=== PATIENT | female | born 1965 | race African-American/Black ===

== ENCOUNTER 2017-06-18 18:04 | Inpatient (IN) | payer OTHER ==
[~2017-06-18] VITALS: Ht 170.2 cm; Wt 150.0 kg
--- NOTE | 2017-06-18 18:47 | RADRPT ---
PROCEDURE: XR, Chest. CLINICAL INDICATION: Cough/weakness. TECHNIQUE: AP chest COMPARISON: None available. FINDINGS: There is no acute infiltrate in the lungs. No pleural effusion. The heart is not enlarged. IMPRESSION: 1. Unremarkable chest x-ray. RPTAT: GG .Mendez James MD, Date Time Electronically viewed and signed by .Mendez James MD, on 06/18/2017 18:46 .Y/
[2017-06-18] MEDS ORDERED: ACETAMINOPHEN 500 MG TAB PO STA (19:26)
[2017-06-18 19:36] LABS: BASOPHILS % 0.3 % (0.0-2.0); EOSINOPHILS # 0.1 10^3/ul (0.0-0.5); EOSINOPHILS % 1.1 % (0.0-7.0); HEMATOCRIT 41.3 % (37.0-47.0); HEMOGLOBIN 14.3 g/dl (12.0-16.0); LYMPHOCYTES # 2.2 10^3/ul (0.8-2.9); LYMPHOCYTES % 24.8 % (15.0-51.0); MEAN CORPUSCULAR HEMOGLOBIN 27.1 pg (29.0-33.0); MEAN CORPUSCULAR HGB CONC 34.6 g/dl (32.0-37.0); MEAN CORPUSCULAR VOLUME 78.4 fl (82.0-101.0); MEAN PLATELET VOLUME 9.9 fl (7.4-10.4); MONOCYTE # 0.6 10^3/ul (0.3-0.9); MONOCYTES % 6.7 % (0.0-11.0); NEUTROPHILS % 66.8 % (39.0-77.0); PLATELET COUNT 278 10^3/UL (140-415); RED BLOOD COUNT 5.27 10^6/ul (4.20-5.40); RED CELL DISTRIBUTION WIDTH 14.1 % (11.5-14.5)
[2017-06-18 19:51] LABS: ANION GAP 14 (8-16); BLOOD UREA NITROGEN 15 mg/dl (7-20); CALCIUM 9.5 mg/dl (8.4-10.2); CARBON DIOXIDE 27 mmol/L (21-31); CHLORIDE 105 mmol/L (97-110); CREATININE 0.98 mg/dl (0.44-1.00); GLUCOSE 102 mg/dl (70-220); SODIUM 142 mmol/L (135-144)
[2017-06-18 20:00] LABS: INR 0.91; PROTIME 12.3 Sec (12.2-14.2)
[2017-06-18 20:06] LABS: TROPONIN-I < 0.012 ng/ml (0.00-0.12)
[2017-06-18 20:10] LABS: PARTIAL THROMBOPLASTIN TIME 22.1 Sec (25.0-35.0)
[2017-06-18] MEDS ORDERED: LORAZEPAM 2 MG INJ IV ONE (21:00)
--- NOTE | 2017-06-18 21:44 | RADRPT ---
PROCEDURE: CT Brain without contrast. CLINICAL INDICATION: Altered level of consciousness. TECHNIQUE: A CT of the brain without contrast was performed utilizing axial sections from the skul l base through the vertex. The patient was scanned without intravenous contrast enhancement. Sagitta l and coronal reformatted images were obtained using the data from the axial images. Total exam DLP is 900.28 mGy-cm. CTDIvol is 45.01 mGy. One or more of the following dose reduction techniques we re used: Automated exposure control, adjustment of the mA and/or kV according to patient size, use o f iterative reconstruction technique. DICOM images are available. COMPARISON: None available FINDINGS: There is normal diaz-white matter differentiation. The ventricles and cisterns are normal. There is no intracranial hemorrhage or space-occupying lesion. There is no skull fracture or lytic lesion. IMPRESSION: 1. Normal noncontrast CT scan of the brain. RPTAT: QQ .Jama Cm MD, MD Date Time Electronically viewed and signed by .Jama Cm MD, on 06/18/2017 21:44 .R/
[2017-06-18] MEDS ORDERED: ACETAMINOPHEN 325 MG TAB PO PRN (23:30)
[2017-06-18] MEDS ORDERED: ONDANSETRON 4 MG INJ IV PRN (23:30)
[2017-06-19] VITALS (12 sets, daily range): BP systolic 128–180; BP diastolic 59–88; PULSE 72–92; RESP 16–19; Ht 170.2 cm; Wt 150.0 kg
[2017-06-19] MEDS ORDERED: ONDANSETRON 4 MG INJ IV PRN
[2017-06-19] MEDS ORDERED: ACETAMINOPHEN 325 MG TAB PO PRN
[2017-06-19] MEDS ORDERED: ALBUTEROL/IPRATROPIUM (NEB) 3 ML AMP HHN PRN
[2017-06-19] MEDS ORDERED: NACL 0.9% 3 ML SYG IV SCH
--- NOTE | 2017-06-19 06:23 | HP ---
Date/Time of Note Date/Time of Note DATE: 06/19/17 TIME: 06:17 Assessment/Plan VTE Prophylaxis VTE Prophylaxis Intervention: LMWH Lines/Catheters IV [facility] Saline Lock Urinary Cath still in place: No Assessment/Plan Assessment/Plan ASSESSMENT 49-year-old female with a history of fibromyalgia, PTSD, anxiety, GERD, prediabetes with acute onset aphasia. Rule out stroke. PLAN -Telemetry monitoring -Head CT was negative for acute findings. Will order carotid Doppler ultrasound and MRI of the brain as well as 2D echo -She will be on aspirin, statin and either subcutaneous heparin or Lovenox for DVT prophylaxis -Physical therapy and speech/swallow evaluation -Neurology consult in a.m. -Check A1c and fasting lipid in a.m. HPI/ROS Admit Date/Time Admit Date/Time Jun 18, 2017 at 23:20 Hx of Present Illness This is a 49-year-old female with a history of fibromyalgia, PTSD, anxiety, GERD , prediabetes who presents to the ER complaining of acute onset of difficulty speaking. All of a sudden, patient was unable to speak. When she presented to the ER, reportedly, she was able to speak but not in full sentence. Currently, she is completely aphasic and only mumbles when attempting to speak. She can't even open her mouth. There is bilateral upper and lower ext weakness. When asked if she was dx'd with stroke before, she nodded yes. When she presented to the ER, BP was 165/78 otherwise the rest of the vitals were stable. Head CT was no acute findings. PMH/Family/Social Social History Smoking Status: Never smoker Exam/Review of Systems Vital Signs Vitals Vital Signs Date Time Temp Pulse Resp B/P Pulse Ox O2 Delivery O2 Flow Rate FiO2 06/19/17 05:18 77 06/19/17 04:28 98.3 16 158/74 94 06/18/17 23:38 Room Air Intake and Output 06/18/17 06/18/17 06/19/17 15:00 23:00 07:00 Intake Total 200 ml Balance 200 ml Exam Constitutional: other (No acute distress. Showing difficulty speaking) Head: atraumatic, normocephalic Eyes: EOMI, PERRL Respiratory: clear to auscultation, normal air movement Cardiovascular: nl pulses, regular rate and rhythm Gastrointestinal: non-tender, soft Neurological: nl mental status, nl strength, other (Speech impairment) Labs Result Diagram: 06/18/17192406/18/171924 Medications Medications Current Medications Lorazepam (Ativan) 0.5 mg Q8H PRN PO ANXIETY; Start 06/19/17 at 00:00 Ondansetron HCl (Zofran Inj) 4 mg Q6H PRN IV NAUSEA AND/OR VOMITING; Start at 00:00 Aspirin (Aspirin) 81 mg DAILY PO ; Start 06/19/17 at 09:00 Acetaminophen (Tylenol Tab) 650 mg Q6H PRN PO PAIN LEVEL 1-3 OR FEVER; Start 06/19/17 at 00:00 Morphine Sulfate (morphine) 2 mg Q4H PRN IV PAIN LEVEL 7-10; Start 06/19/17 at 00:00 Famotidine (Pepcid) 20 mg Q12 PO ; Start 06/19/17 at 09:00 Enoxaparin Sodium (Lovenox) 40 mg DAILY SC ; Start 06/19/17 at 09:00 Atorvastatin Calcium (Lipitor) 40 mg QHS PO ; Start 06/19/17 at 21:00 PAULINE CASTILLO MD Jun 19, 2017 06:22
[2017-06-19] MEDS: ASPIRIN 81 MG TAB PO SCH (08:16)
[2017-06-19] MEDS: FAMOTIDINE 20 MG TAB PO SCH ×2 (08:16→20:20)
[2017-06-19] MEDS: ENOXAPARIN 40 MG/0.4 ML SYG SC SCH (08:17)
[2017-06-19 08:48] LABS: BASOPHILS % 0.3 % (0.0-2.0); EOSINOPHILS # 0.1 10^3/ul (0.0-0.5); EOSINOPHILS % 1.5 % (0.0-7.0); HEMATOCRIT 37.2 % (37.0-47.0); HEMOGLOBIN 12.9 g/dl (12.0-16.0); LYMPHOCYTES # 1.9 10^3/ul (0.8-2.9); LYMPHOCYTES % 26.4 % (15.0-51.0); MEAN CORPUSCULAR HGB CONC 34.7 g/dl (32.0-37.0); MEAN CORPUSCULAR VOLUME 77.8 fl (82.0-101.0); MEAN PLATELET VOLUME 10.1 fl (7.4-10.4); MONOCYTE # 0.4 10^3/ul (0.3-0.9); MONOCYTES % 5.6 % (0.0-11.0); NEUTROPHIL # 4.7 10^3/ul (1.6-7.5); NEUTROPHILS % 65.9 % (39.0-77.0); PLATELET COUNT 237 10^3/UL (140-415); RED BLOOD COUNT 4.78 10^6/ul (4.20-5.40); RED CELL DISTRIBUTION WIDTH 14.1 % (11.5-14.5); WHITE BLOOD COUNT 7.2 10^3/ul (4.8-10.8)
[2017-06-19 09:14] LABS: ALBUMIN 3.7 g/dl (3.3-4.9); ALBUMIN/GLOBULIN RATIO 1.27; BILIRUBIN,INDIRECT 0.5 mg/dl (0-1.1); BILIRUBIN,TOTAL 0.5 mg/dl (0.2-1.3); CALCIUM 8.9 mg/dl (8.4-10.2); CHOL/HDL RATIO 2.4 RATIO; CREATININE 0.91 mg/dl (0.44-1.00); MAGNESIUM 1.9 mg/dl (1.7-2.5); POTASSIUM 4.3 mmol/L (3.5-5.1); TOTAL PROTEIN 6.6 g/dl (6.1-8.1)
--- NOTE | 2017-06-19 09:44 | RADRPT ---
PROCEDURE: Carotid ultrasound CLINICAL INDICATION: Transient ischemic attack, carotid bruits TECHNIQUE: Rogers scale, color doppler, spectral doppler ultrasound of the bilateral carotid and nataliia tebral arteries. This study indirectly references the measurement of the distal ICA diameter as the denominator for s tenosis measurement. Validated velocity measurements with angiographic measurements, velocity criter ia are extrapolated from diameter data as defined by: *Cartoid artery stenosis: rogers-scale and Doppl er US diagnosis. Society of Radiologists in Ultrasound Consensus Conference. Radiology 2003; 229: 34 0-346. SRU Consensus Conference Criteria for the Diagnosis of Carotid Artery Stenosis* Degree of Stenosis, % ICA PSV, cm/sec Plaque Estimate, % ICA/CCA PSV Ratio Normal <125 None <2.0 <50 <125 <50 <2.0 50 69 125-230 >50 2.0-4.0 >70 but less than near occlusion >230 >50 <4.0 Near occlusion High, low, or undetectable Visible Variable Total occlusion Undetectable Visible, no detectable lumen Not applicable COMPARISON: No prior studies are available for comparison. FINDINGS: Location Right CCA80 - 90 cm/sec Prox ICA 37 cm/sec Mid ICA57 cm/sec Dist ICA63 cm/sec ECA80 cm/sec ICA/CCA0.8 Left CCA76 - 89 cm/sec Prox ICA 92 cm/sec Mid ICA64 cm/sec Dist ICA70 cm/sec PGQ428 cm/sec ICA/CCA1.2 Plaque burden: No significant plaque is seen. Antegrade flow is seen within the vertebral arteries bilaterally. IMPRESSION: No evidence of a hemodynamically significant carotid stenosis. RPTAT: AADD .Venkat Neff MD, MD Date Time Electronically viewed and signed by .Venkat Neff MD, MD on 06/19/2017 09:43 .B/
--- NOTE | 2017-06-19 09:50 | PN ---
Date/Time of Note Date/Time of Note DATE: 06/19/17 TIME: 09:50 Assessment/Plan VTE Prophylaxis VTE Prophylaxis Intervention: LMWH Lines/Catheters IV Catheter Type (from [facility]): Saline Lock Urinary Cath still in place: No Assessment/Plan Chief Complaint/Hosp Course 49-year-old female with a history of fibromyalgia, PTSD, anxiety, GERD, prediabetes presented with sudden onset of difficulty speaking. 1. Aphasia. Rule out CVA versus possible migraine attack vs psychogenic etiologies. CT negative for acute stroke. Neuro exam benign. Symptoms resolved. -We will order MRI brain, MRA head and neck. -Neurology consult-defer migraine treatment per neurology. 2. PTSD. -Continue supportive care. Recommend outpatient psychiatric evaluation. 3. Anxiety disorders. -As needed benzodiazepine. 4. Prediabetes-controlled with A1c 5.7. On Januvia at home -On Tradjenta. Monitor. 5. Obesity. -Weight reduction advised. 6. GERD. Stable. 7. Hx of concussion/migraines Prophylaxis: Lovenox/Pepcid. PLAN: Follow-up on imaging studies. Follow-up with neurology recommendations. Patient was seen in collaboration with Dr. Rg. Problems: Subjective 24 Hr Interval Summary Free Text/Dictation Patient currently resting in bed comfortably. She is not aphasic at this moment. She is conversing appropriately. Having headache. Exam/Review of Systems Vital Signs Vitals Vital Signs Date Time Temp Pulse Resp B/P Pulse Ox O2 Delivery O2 Flow Rate FiO2 06/19/17 08:31 77 06/19/17 04:28 98.3 16 158/74 94 06/18/17 23:38 Room Air Intake and Output 06/18/17 06/18/17 06/19/17 15:00 23:00 07:00 Intake Total 200 ml Balance 200 ml Exam General: Morbidly obese female, not in any acute distress . HEENT: Normocephalic, Atraumatic, No laceration or hematoma; Eyes: PEERL, Conjunctiva clear, Anicteric sclera Neck: Supple without any lymphadenopathy, nontender, no JVD, no carotid bruits, trachea midline, no thyromegaly Cardiac: S1, S2 auscultated, regular rhythm and rate, no mumurs or gallop Pulmonary: Normal respiratory effort. Chest clear to auscultation bilaterally, no adventitious breath sounds GI: Abdomen normal to inspection. Soft, non tender, non- distended, no masses, no rebound tenderness or guarding. Bowel sounds active on all four quadrants Genitourinary: Deferred Extremities: Generalized weakness to all 4 extremities. No cyanosis, clubbing, or edema. Pulses [2+] bilaterally. Full ROM on all four extremities. No focal weakness appreciated. Neurologic/Psych: Alert to person, place, time, and situation. Affect : Labile mood/anxious, intact sensation. Skin: Clean,dry, and intact. No ecchymosis, no rashes, or lesions Results Result Diagram: 06/19/17 0706/19/17 0730 Results 24 hrs Laboratory Tests Test 06/18/17 19:25 06/19/17 07:30 White Blood Count 9.0 7.2 Red Blood Count 5.27 4.78 Hemoglobin 14.3 12.9 Hematocrit 41.3 37.2 Mean Corpuscular Volume 78.4 L 77.8 L Mean Corpuscular Hemoglobin 27.1 L 27.0 L Mean Corpuscular Hemoglobin Concent 34.6 34.7 Red Cell Distribution Width 14.1 14.1 Platelet Count 278 237 Mean Platelet Volume 9.9 10.1 Neutrophils % 66.8 65.9 Lymphocytes % 24.8 26.4 Monocytes % 6.7 5.6 Eosinophils % 1.1 1.5 Basophils % 0.3 0.3 Nucleated Red Blood Cells % 0.0 0.0 Neutrophils # 6.0 4.7 Lymphocytes # 2.2 1.9 Monocytes # 0.6 0.4 Eosinophils # 0.1 0.1 Basophils # 0.0 0.0 Nucleated Red Blood Cells # 0.0 0.0 Prothrombin Time 12.3 Prothrombin Time Ratio 1.0 INR International Normalized Ratio 0.91 Activated Partial Thromboplast Time 22.1 L Sodium Level 142 140 Potassium Level 4.0 4.3 Chloride Level 105 105 Carbon Dioxide Level 27 26 Anion Gap 14 13 Blood Urea Nitrogen 15 12 Creatinine 0.98 0.91 Glucose Level 102 120 Calcium Level 9.5 8.9 Troponin I < 0.012 Magnesium Level 1.9 Total Bilirubin 0.5 Direct Bilirubin 0.00 Indirect Bilirubin 0.5 Aspartate Amino Transf (AST/SGOT) 24 Alanine Aminotransferase (ALT/SGPT) 44 Alkaline Phosphatase 63 Total Protein 6.6 Albumin 3.7 Globulin 2.90 Albumin/Globulin Ratio 1.27 Triglycerides Level 99 Cholesterol Level 216 H LDL Cholesterol, Calculated 109 HDL Cholesterol 87 Cholesterol/HDL Ratio 2.4 Thyroid Stimulating Hormone (TSH) Pending Medications Medications Current Medications Lorazepam (Ativan) 0.5 mg Q8H PRN PO ANXIETY; Start 06/19/17 at 00:00 Ondansetron HCl (Zofran Inj) 4 mg Q6H PRN IV NAUSEA AND/OR VOMITING; Start at 00:00 Aspirin (Aspirin) 81 mg DAILY PO Last administered on 06/19/17 08:16; Admin Dose 81 MG; Start 06/19/17 at 09:00 Acetaminophen (Tylenol Tab) 650 mg Q6H PRN PO PAIN LEVEL 1-3 OR FEVER; Start 06/19/17 at 00:00 Morphine Sulfate (morphine) 2 mg Q4H PRN IV PAIN LEVEL 7-10; Start 06/19/17 at 00:00 Famotidine (Pepcid) 20 mg Q12 PO Last administered on 06/19/17 08:16; Admin Dose 20 MG; Start 06/19/17 at 09:00 Enoxaparin Sodium (Lovenox) 40 mg DAILY SC Last administered on 06/19/17 08: 17; Admin Dose 40 MG; Start 06/19/17 at 09:00 Atorvastatin Calcium (Lipitor) 40 mg QHS PO ; Start 06/19/17 at 21:00 CELESTE AYERS NP Jun 19, 2017 09:50
[2017-06-19 10:09] LABS: THYROID STIMULATING HORMONE 1.11 MIU/L (0.465-4.680)
--- NOTE | 2017-06-19 12:36 | CONS ---
Date/Time of Note Date/Time of Note DATE: 06/19/17 TIME: 12:31 Assessment/Plan Assessment/Plan Chief Complaint/Hosp Course 52 yo female with morbid obesity, pre-diabetes, depression anxiety, migraine p/ w aphasia diffuse weakness. rule out CVA. suspect more psychogenic etiology. continue plan for MRI Brain and MRA Head/Neck utox screen conservative headache management she is on multiple medications at home reluctant to add an additional med advised patient she should fu with a neurologist for management of migraines if no emergent findings on MRI would suggest psychiatry evaluation Problems: Consultation Date/Type/Reason Admit Date/Time Jun 18, 2017 at 23:20 Date of Consultation: Jun 18, 2017 Type of Consultation: Neurology Reason for Consultation aphasia Referring Provider: CELESTE AYERS NP Hx of Present Illness 49 yo female morbid obesity, fibromyalgia, PTSD, depression and anxiety, pre- diabetes, hx of concussion with chronic migraines p/w difficulty speaking. She also describes numbness that began in both feet that ascends throughout her entire body she is unable to move her arms or legs she denies any bowel or bladder issues. She is admitted for CVA whitaker. weakness diffuse headache Social History Smoking Status: Never smoker Exam/Review of Systems Vital Signs Vitals Vital Signs Date Time Temp Pulse Resp B/P Pulse Ox O2 Delivery O2 Flow Rate FiO2 06/19/17 12:12 76 06/19/17 11:33 98.2 17 128/59 95 06/18/17 23:38 Room Air Intake and Output 06/18/17 06/18/17 06/19/17 15:00 23:00 07:00 Intake Total 200 ml Balance 200 ml Exam awake and alert oriented verbal follows all commands CN: II-XII intact Motor: guarding her extremities, + Bryant's maneuver she is unable to provide appropriate strength on testing, however doubt there is actual weakness Sensory reportedly decreased Reflexes 1+ throughout toes down Results Result Diagram: 06/19/17 0730 06/19/17 0730 Results 24 hrs Laboratory Tests Test 06/18/17 19:25 06/19/17 07:30 White Blood Count 9.0 7.2 Red Blood Count 5.27 4.78 Hemoglobin 14.3 12.9 Hematocrit 41.3 37.2 Mean Corpuscular Volume 78.4 L 77.8 L Mean Corpuscular Hemoglobin 27.1 L 27.0 L Mean Corpuscular Hemoglobin Concent 34.6 34.7 Red Cell Distribution Width 14.1 14.1 Platelet Count 278 237 Mean Platelet Volume 9.9 10.1 Neutrophils % 66.8 65.9 Lymphocytes % 24.8 26.4 Monocytes % 6.7 5.6 Eosinophils % 1.1 1.5 Basophils % 0.3 0.3 Nucleated Red Blood Cells % 0.0 0.0 Neutrophils # 6.0 4.7 Lymphocytes # 2.2 1.9 Monocytes # 0.6 0.4 Eosinophils # 0.1 0.1 Basophils # 0.0 0.0 Nucleated Red Blood Cells # 0.0 0.0 Prothrombin Time 12.3 Prothrombin Time Ratio 1.0 INR International Normalized Ratio 0.91 Activated Partial Thromboplast Time 22.1 L Sodium Level 142 140 Potassium Level 4.0 4.3 Chloride Level 105 105 Carbon Dioxide Level 27 26 Anion Gap 14 13 Blood Urea Nitrogen 15 12 Creatinine 0.98 0.91 Glucose Level 102 120 Calcium Level 9.5 8.9 Troponin I < 0.012 Hemoglobin A1c 5.7 Magnesium Level 1.9 Total Bilirubin 0.5 Direct Bilirubin 0.00 Indirect Bilirubin 0.5 Aspartate Amino Transf (AST/SGOT) 24 Alanine Aminotransferase (ALT/SGPT) 44 Alkaline Phosphatase 63 Total Protein 6.6 Albumin 3.7 Globulin 2.90 Albumin/Globulin Ratio 1.27 Triglycerides Level 99 Cholesterol Level 216 H LDL Cholesterol, Calculated 109 HDL Cholesterol 87 Cholesterol/HDL Ratio 2.4 Thyroid Stimulating Hormone (TSH) 1.110 Medications Medications Current Medications Lorazepam (Ativan) 0.5 mg Q8H PRN PO ANXIETY; Start 06/19/17 at 00:00 Ondansetron HCl (Zofran Inj) 4 mg Q6H PRN IV NAUSEA AND/OR VOMITING; Start at 00:00 Aspirin (Aspirin) 81 mg DAILY PO Last administered on 06/19/17 08:16; Admin Dose 81 MG; Start 06/19/17 at 09:00 Acetaminophen (Tylenol Tab) 650 mg Q6H PRN PO PAIN LEVEL 1-3 OR FEVER Last administered on 06/19/17 12:04; Admin Dose 650 MG; Start 06/19/17 at 00:00 Morphine Sulfate (morphine) 2 mg Q4H PRN IV PAIN LEVEL 7-10; Start 06/19/17 at 00:00 Famotidine (Pepcid) 20 mg Q12 PO Last administered on 06/19/17 08:16; Admin Dose 20 MG; Start 06/19/17 at 09:00 Enoxaparin Sodium (Lovenox) 40 mg DAILY SC Last administered on 06/19/17 08: 17; Admin Dose 40 MG; Start 06/19/17 at 09:00 Atorvastatin Calcium (Lipitor) 40 mg QHS PO ; Start 06/19/17 at 21:00 CIRA OLIVEIRA MD Jun 19, 2017 12:36
[2017-06-19] MEDS: LORAZEPAM 0.5 MG TAB PO PRN (17:00)
--- NOTE | 2017-06-19 17:12 | RADRPT ---
Echocardiogram Report Patient Name: AYSE BAILEY Gender: Female Date: 1965 Study Date: 19-Jun-2017 Mud Analysis Supervisor: Arlen Marte [facility] Location: [address] Ref. Physician: PAULINE CASTILLO Quality: Good Procedures: Transthoracic echocardiogram with complete 2D, M-Mode, and doppler examination. Indications: Transient Ischemic Attack. 2D/M Mode Doppler Measurement Value Normal Ranges Measurement Value Normal Ranges LVIDd 2D 4.5 3.5 - 5.6 cm AV Peak Aiden 1.4 m/sec LVIDs 2D 2.8 2.1 - 4.1 cm AV Peak PG 8.0 mmHg FS 2D 37.0 % LVOT Peak Aiden 0.9 m/sec LVPWd 2D 0.9 0.6 - 1.1 cm LVOT Peak PG 4.0 mmHg IVSd 2D 1.1 0.6 - 1.1 cm MV E Peak Aiden 0.6 m/sec IVS/LVPW 2D 1.1 MV A Peak Aiden 0.7 m/sec AoR Diam 2D 2.4 2.0 - 3.7 cm MV E/A 0.9 LA/Ao 2D 2 0 - 1 MV Decel Time 204 msec EDV 2D 90.5 cm3 MV E/A 0.9 ESV 2D 22.7 cm3 TR Peak Aiden 2.3 m/sec LA Dimen 2D 4.2 2.3 - 4.0 cm TR Peak PG 21.0 mmHg RVSP 31.0 mmHg Findings Left Ventricle: Normal left ventricular systolic function. Normal left ventricular cavity size. Mild concentric left ventricular hypertrophy. Ejection fraction is visually estimated at 65 %. Tissue Doppler/Mitral Doppler indices are consistent with impaired relaxation (Stage I diastolic dysfunction). Right Ventricle: Normal right ventricular size. Normal right ventricular systolic function. Left Atrium: There is mild enlargement of left atrium. Right Atrium: The right atrium is normal in size. Mitral Valve: Normal appearance of the mitral valve. Mild mitral annular calcification. Trace mitral regurgitation. Aortic Valve: Normal appearance of the aortic valve. No significant aortic stenosis or insufficiency. Tricuspid Valve: Normal appearance of the tricuspid valve. Estimated peak PA systolic pressure 31 mmHg. There is trace to mild tricuspid regurgitation. Pulmonic Valve: Normal pulmonic valve appearance. Pericardium: Normal pericardium with no significant pericardial effusion. Aorta: Normal aortic root. IVC: Normal size and normal respiratory collapse consistent with normal right atrial pressure. Conclusions 1.Normal left ventricular systolic function. Normal left ventricular cavity size. Mild concentric left ventricular hypertrophy. Ejection fraction is visually estimated at 65 %. Tissue Doppler/Mitral Doppler indices are consistent with impaired relaxation (Stage I diastolic dysfunction). 2.There is mild enlargement of left atrium. 3.Normal appearance of the mitral valve. Mild mitral annular calcification. Trace mitral regurgitation. 4.Normal appearance of the aortic valve. No significant aortic stenosis or insufficiency. 5.Normal appearance of the tricuspid valve. Estimated peak PA systolic pressure 31 mmHg. There is trace to mild tricuspid regurgitation. Electronically Signed By: Ismael Vides 19-Jun-2017 17:11:10 -0800 Patient Name: AYSE BAILEY Study Date: 19-Jun-2017 [id number]
[2017-06-19] MEDS ORDERED: LORAZEPAM 2 MG INJ IV ONE (17:50)
--- NOTE | 2017-06-19 18:59 | RADRPT ---
PROCEDURE: MRI Brain without contrast. CLINICAL INDICATION: Aphasia, TIA. TECHNIQUE: An MRI of the brain was performed utilizing the following sequences: Sagittal and axial T1 weighted, axial T2 weighted, axial diffusion weighted with ADC mapping, coronal GRE, and axial F LAIR. COMPARISON: Brain CT 06/18/2017. FINDINGS: No diffusion weighted abnormalities are seen to suggest the presence of acute ischemia or recent inf arct. No hypointense signal abnormalities are seen on the GRE images to suggest the presence of blo od degradation products. There is no evidence of intracranial hemorrhage, mass effect, or midline s hift. No extra-axial fluid collections are seen. The ventricles and sulci are mildly enlarged indica tive of volume loss. There are mild small scattered foci of T2 FLAIR hyperintensity in the periventricular, deep, and sub cortical white matter, which are nonspecific in etiology but likely reflect chronic small vessel isc hemic changes. No abnormal intracranial vascular flow void is noted. The visualized paranasal sinuses are grossly clear. IMPRESSION: 1. No acute intracranial hemorrhage, infarction or mass. 2. Mild chronic small vessel ischemic changes. 3. Mild generalized cerebral volume loss. RPTAT: HFN .Gi Holland MD, MD Date Time Electronically viewed and signed by .Gi Holland MD, MD on 06/19/2017 18:58 .N/
--- NOTE | 2017-06-19 19:01 | RADRPT ---
PROCEDURE: MRA Brain. CLINICAL INDICATION: Aphasia, TIA. Neurological deficit. TECHNIQUE: An MRA of the brain was performed without intravenous contrast utilizing the following sequences: 3-D [id number] images through the intracranial vasculature with post processed chaparro l intensity projections in multiple planes. Images are included in the brain MRI of the same day. COMPARISON: Concurrent MRI of the brain. FINDINGS: The petrous, cavernous, and supraclinoid internal carotid artery segments are patent without evidenc e of significant stenosis. The proximal anterior cerebral and middle cerebral arteries are patent wi thout significant stenosis. The intradural vertebral arteries, basilar artery and posterior cerebra l arteries are patent without evidence of significant focal stenosis. No aneurysms are identified. IMPRESSION: 1. Patent major intracranial arteries. RPTAT: HFN .Gi Holland MD, Date Time Electronically viewed and signed by .Gi Holland MD, on 06/19/2017 19:01 .N/
[2017-06-19] MEDS: ATORVASTATIN 40 MG TAB PO SCH (20:20)
[2017-06-20] VITALS (16 sets, daily range): BP systolic 119–187; BP diastolic 59–100; PULSE 69–95; RESP 16–20
[2017-06-20] MEDS: morphine 2 MG INJ IV PRN ×2 (04:37→08:56)
[2017-06-20] MEDS ORDERED: NAPR500T8 PO (06:30)
[2017-06-20] MEDS ORDERED: LOSA50TA6 PO (06:30)
[2017-06-20] MEDS ORDERED: SITA100T8 PO (06:30)
[2017-06-20] MEDS ORDERED: GABA300C16 PO (06:30)
[2017-06-20] MEDS ORDERED: METO-429 PO (06:30)
[2017-06-20] MEDS ORDERED: ATOR20TA38 PO (06:30)
[2017-06-20] MEDS ORDERED: NORT10CA2 PO (06:30)
[2017-06-20] MEDS: FAMOTIDINE 20 MG TAB PO SCH ×2 (08:50→20:31)
[2017-06-20] MEDS: ASPIRIN 81 MG TAB PO SCH (08:50)
[2017-06-20] MEDS: ENOXAPARIN 40 MG/0.4 ML SYG SC SCH (08:54)
--- NOTE | 2017-06-20 10:29 | PN ---
Date/Time of Note Date/Time of Note DATE: 06/20/17 TIME: 10:26 Assessment/Plan VTE Prophylaxis VTE Prophylaxis Intervention: ambulation, LMWH Lines/Catheters IV [facility]ter [facility] (from [facility] Saline Lock Urinary Cath still in place: No Assessment/Plan Chief Complaint/Hosp Course 49-year-old female with a history of fibromyalgia, PTSD, anxiety, GERD, prediabetes presented with sudden onset of difficulty speaking. 1. Aphasia,most likely possible conversion disorder vs malingering. Patient had extensive neurology diagnostic workup and could not explain a medical reason for her symptoms. Clinical presentation does not correlate with possible migraine aura attack. -Symptoms resolved. Currently patient is conversing appropriately. -Neurology evaluation appreciated. As per recommendation, there is no further treatment indicated for migraine as patient is currently taking multiple medications. -Outpatient psych follow-up 2. PTSD. -Continue supportive care. Recommend outpatient psychiatric evaluation which she already has. 3. Anxiety disorders. -As needed benzodiazepine. 4. Prediabetes-controlled with A1c 5.7. On Januvia at home -On Tradjenta. Monitor. 5. Obesity. -Weight reduction advised. 6. GERD. Stable. 7. Hx of concussion/migraines 8. Homelessness. -poultry process worker consult Prophylaxis: Lovenox/Pepcid. PLAN: Patient has been evaluated by physical therapist and recommended shelter facility for further physical therapy. Will defer this to case management and high school social studies tutor for appropriate placement. Patient was seen in collaboration with Dr. Rg. Problems: Subjective 24 Hr Interval Summary Free Text/Dictation Overall, patient doing well. Patient did not have any further aphasia. She has been evaluated by physical therapist and recommended a shelter facility upon discharge. Exam/Review of Systems Vital Signs Vitals Vital Signs Date Time Temp Pulse Resp B/P Pulse Ox O2 Delivery O2 Flow Rate FiO2 06/20/17 08:03 98.1 78 17 171/80 97 06/18/17 23:38 Room Air Intake and Output 06/19/17 06/19/17 06/20/17 14:59 22:59 06:59 Intake Total 650 ml 200 ml Balance 650 ml 200 ml Exam General: Morbidly obese female, not in any acute distress . HEENT: Normocephalic, Atraumatic, No laceration or hematoma; Eyes: PEERL, Conjunctiva clear, Anicteric sclera Neck: Supple without any lymphadenopathy, nontender, no JVD, no carotid bruits, trachea midline, no thyromegaly Cardiac: S1, S2 auscultated, regular rhythm and rate, no mumurs or gallop Pulmonary: Normal respiratory effort. Chest clear to auscultation bilaterally, no adventitious breath sounds GI: Abdomen obese to inspection. Soft, non tender, non- distended, no masses, no rebound tenderness or guarding. Bowel sounds active on all four quadrants Genitourinary: Deferred Extremities: With mild generalized weakness to all 4 extremities. No cyanosis, clubbing, or edema. Pulses [2+] bilaterally. Full ROM on all four extremities. No focal weakness appreciated. Neurologic/Psych: Alert to person, place, time, and situation. Affect : Labile mood/anxious, intact sensation. Skin: Clean,dry, and intact. No ecchymosis, no rashes, or lesions Results Result Diagram: 06/19/1730 06/19/17 0730 Medications Medications Current Medications Lorazepam (Ativan) 0.5 mg Q8H PRN PO ANXIETY Last administered on 06/19/17 17 :00; Admin Dose 0.5 MG; Start 06/19/17 at 00:00 Ondansetron HCl (Zofran Inj) 4 mg Q6H PRN IV NAUSEA AND/OR VOMITING; Start at 00:00 Aspirin (Aspirin) 81 mg DAILY PO Last administered on 06/20/17 08:50; Admin Dose 81 MG; Start 06/19/17 at 09:00 Acetaminophen (Tylenol Tab) 650 mg Q6H PRN PO PAIN LEVEL 1-3 OR FEVER Last administered on 06/19/17 12:04; Admin Dose 650 MG; Start 06/19/17 at 00:00 Morphine Sulfate (morphine) 2 mg Q4H PRN IV PAIN LEVEL 7-10 Last administered on 06/20/17 08:56; Admin Dose 2 MG; Start 06/19/17 at 00:00 Famotidine (Pepcid) 20 mg Q12 PO Last administered on 06/20/17 08:50; Admin Dose 20 MG; Start 06/19/17 at 09:00 Enoxaparin Sodium (Lovenox) 40 mg DAILY SC Last administered on 06/20/17 08: 54; Admin Dose 40 MG; Start 06/19/17 at 09:00 Atorvastatin Calcium (Lipitor) 40 mg QHS PO Last administered on 06/19/17t 20: 20; Admin Dose 40 MG; Start 06/19/17 at 21:00 Gabapentin (Neurontin) 300 mg BID PO ; Start 06/20/17 at 10:30 Losartan Potassium (Cozaar) 50 mg DAILY PO ; Start 06/20/17 at 10:30 Metoprolol Tartrate (Lopressor) 50 mg BID PO ; Start 06/20/17 at 10:30 Nortriptyline HCl (Aventyl) 10 mg HS PRN PO ANXIETY; Start 06/20/17 at 10:30 Miscellaneous Information 500 mg BID PO ; Start 06/20/17 at 21:00; Status UNV Linagliptin (Tradjenta) 5 mg DAILY PO ; Start 06/20/17 at 10:30 CELESTE AYERS NP Jun 20, 2017 10:29
[2017-06-20] MEDS ORDERED: NORTRIPTYLINE 10 MG CAP PO PRN (10:30)
[2017-06-20] MEDS ORDERED: GABAPENTIN 300 MG CAP PO SCH (10:30)
--- NOTE | 2017-06-20 11:50 | CONS ---
Date/Time of Note Date/Time of Note DATE: 06/20/17 TIME: 11:48 Consult Date/Type/Reason Admit Date/Time Jun 18, 2017 at 23:20 Initial Consult Date 06/18/17 Type of Consultation: Neurology Reason for Consultation weakness Ordering Provider: CELESTE AYERS NP Subjective recommended for SNF no improvement MRI negative Objective Vital Signs Date Time Temp Pulse Resp B/P Pulse Ox O2 Delivery O2 Flow Rate FiO2 06/20/17 08:03 98.1 78 17 171/80 97 06/18/17 23:38 Room Air Intake and Output 06/19/17 06/19/17 06/20/17 15:00 23:00 07:00 Intake Total 650 ml 200 ml Balance 650 ml 200 ml Exam awake and alert oriented verbal follows all commands CN: II-XII intact Motor: guarding her extremities, + Bryant's maneuver she is unable to provide appropriate strength on testing, however doubt there is actual weakness Sensory reportedly decreased Reflexes 1+ throughout toes down Results/Medications Result Diagram: 06/19/1772906/19/17729 Medications Current Medications Lorazepam (Ativan) 0.5 mg Q8H PRN PO ANXIETY Last administered on 06/19/17 17 :00; Admin Dose 0.5 MG; Start 06/19/17 at 00:00 Ondansetron HCl (Zofran Inj) 4 mg Q6H PRN IV NAUSEA AND/OR VOMITING; Start at 00:00 Aspirin (Aspirin) 81 mg DAILY PO Last administered on 06/20/17 08:50; Admin Dose 81 MG; Start 06/19/17 at 09:00 Acetaminophen (Tylenol Tab) 650 mg Q6H PRN PO PAIN LEVEL 1-3 OR FEVER Last administered on 06/19/17 12:04; Admin Dose 650 MG; Start 06/19/17 at 00:00 Famotidine (Pepcid) 20 mg Q12 PO Last administered on 06/20/17 08:50; Admin Dose 20 MG; Start 06/19/17 at 09:00 Enoxaparin Sodium (Lovenox) 40 mg DAILY SC Last administered on 06/20/17 08: 54; Admin Dose 40 MG; Start 06/19/17 at 09:00 Atorvastatin Calcium (Lipitor) 40 mg QHS PO Last administered on 06/19/17t 20: 20; Admin Dose 40 MG; Start 06/19/17 at 21:00 Losartan Potassium (Cozaar) 50 mg DAILY PO ; Start 06/20/17 at 10:30 Metoprolol Tartrate (Lopressor) 50 mg BID PO ; Start 06/20/17 at 10:30 Nortriptyline HCl (Aventyl) 10 mg HS PRN PO ANXIETY; Start 06/20/17 at 10:30 Linagliptin (Tradjenta) 5 mg DAILY PO ; Start 06/20/17 at 10:30 Acetaminophen/ Hydrocodone Bitart ([place] (5/325)) 1 tab Q4H PRN PO pain; Start 06/20/17 at 10:30 Assessment/Plan Chief Complaint/Hosp Course 52 yo female with morbid obesity, pre-diabetes, depression anxiety, migraine p/ w aphasia diffuse weakness. MRI MRA negative. Conversion d/o , chronic migraine, polypharmacy. conservative headache management she is on multiple medications at home reluctant to add an additional med psych evaluation will sign off requires outpatient neuro fu Problems: CIRA OLIVEIRA MD Jun 20, 2017 11:50
[2017-06-20] MEDS: HYDROCODONE/APAP (5/325) TAB PO PRN ×2 (12:33→20:32)
[2017-06-20] MEDS: LINAGLIPTIN 5 MG TABLET PO SCH (12:33)
[2017-06-20] MEDS: LOSARTAN 50 MG TAB PO SCH (12:34)
[2017-06-20] MEDS: METOPROLOL 50 MG TAB PO SCH ×2 (12:35→20:32)
[2017-06-20] MEDS: LORAZEPAM 0.5 MG TAB PO PRN (12:39)
[2017-06-20] MEDS: ATORVASTATIN 40 MG TAB PO SCH (20:31)
[2017-06-20] MEDS ORDERED: ATORVASTATIN 20 MG TAB PO SCH (21:00)
[2017-06-20] MEDS ORDERED: NAPROXEN 500 MG PO SCH (21:00)
[2017-06-21] VITALS (12 sets, daily range): BP systolic 127–163; BP diastolic 58–85; PULSE 65–71; RESP 16–19
[2017-06-21] MEDS: HYDROCODONE/APAP (5/325) TAB PO PRN (05:35)
[2017-06-21] MEDS ORDERED: KETOROLAC 30 MG INJ IV ONE (05:59)
[2017-06-21] MEDS: ASPIRIN 81 MG TAB PO SCH (08:54)
[2017-06-21] MEDS: FAMOTIDINE 20 MG TAB PO SCH ×2 (08:55→20:24)
[2017-06-21] MEDS: LINAGLIPTIN 5 MG TABLET PO SCH (08:55)
[2017-06-21] MEDS: LOSARTAN 50 MG TAB PO SCH (08:56)
[2017-06-21] MEDS: METOPROLOL 50 MG TAB PO SCH ×2 (08:56→20:24)
[2017-06-21] MEDS: ENOXAPARIN 40 MG/0.4 ML SYG SC SCH (09:20)
--- NOTE | 2017-06-21 10:18 | PN ---
Date/Time of Note Date/Time of Note DATE: 06/21/17 TIME: 10:18 Assessment/Plan VTE Prophylaxis VTE Prophylaxis Intervention: ambulation, SCD's Lines/Catheters IV Catheter Type (from [facility]): Saline Lock Urinary Cath still in place: No Assessment/Plan Chief Complaint/Hosp Course 49-year-old female with a history of fibromyalgia, PTSD, anxiety, GERD, prediabetes presented with sudden onset of difficulty speaking. 1. Aphasia,most likely possible conversion disorder vs malingering. Patient had extensive neurology diagnostic workup and could not explain a medical reason for her symptoms. -As the plan was to discharge patient since her symptoms were completely resolved, she was again noted with similar aphasia without any movement on her extremities. -Neurology evaluation appreciated. As per recommendation, there is no further treatment indicated for migraine as patient is currently taking multiple medications. -At this time, we are going to obtain a telemetry psychiatric evaluation and once cleared, patient to follow-up with her outpatient psychiatrist. 2. PTSD. -Continue supportive care. Recommend outpatient psychiatric evaluation which she already has. 3. Anxiety disorders. -As needed benzodiazepine. 4. Prediabetes-controlled with A1c 5.7. On Januvia at home -On Tradjenta. Monitor. 5. Obesity. -Weight reduction advised. 6. GERD. Stable. 7. Hx of concussion/migraines 8. Homelessness. -can intake worker consult Prophylaxis: Lovenox/Pepcid. PLAN: Patient refused [facility] facility placement. As the plan was to discharge patient home with DME, she again presented similar symptoms of aphasia and inability to move. We are going to follow-up with telemetry psych evaluation and once cleared from telemetry psych standpoint, patient will be discharged home. Patient was seen in collaboration with Dr. Rg. Problems: Subjective 24 Hr Interval Summary Free Text/Dictation As the plan was to send patient home today as she refused to go to a [facility] facility.Surprisingly, she was again found aphasic. She is also not moving her extremities. Exam/Review of Systems Vital Signs Vitals Vital Signs Date Time Temp Pulse Resp B/P Pulse Ox O2 Delivery O2 Flow Rate FiO2 06/21/17 08:31 69 06/21/17 07:44 98.4 17 129/62 98 06/18/17 23:38 Room Air Intake and Output 06/20/17 06/20/17 06/21/17 15:00 23:00 07:00 Intake Total 950 ml 750 ml Balance 950 ml 750 ml Exam General: Morbidly obese female, not in any acute distress . HEENT: Normocephalic, Atraumatic, No laceration or hematoma; Eyes: PEERL, Conjunctiva clear, Anicteric sclera Neck: Supple without any lymphadenopathy, nontender, no JVD, no carotid bruits, trachea midline, no thyromegaly Cardiac: S1, S2 auscultated, regular rhythm and rate, no mumurs or gallop Pulmonary: Normal respiratory effort. Chest clear to auscultation bilaterally, no adventitious breath sounds GI: Abdomen normal to inspection. Soft, non tender, non- distended, no masses, no rebound tenderness or guarding. Bowel sounds active on all four quadrants Genitourinary: Deferred Extremities: No cyanosis, clubbing, or edema. Pulses [2+] bilaterally. Neurologic/Psych: Today patient is not talking. She is also not moving her extremities. Alert to person, place, time, and situation. Affect : Labile mood/ anxious, intact sensation. Skin: Clean,dry, and intact. No ecchymosis, no rashes, or lesions Results Result Diagram: 06/19/17 0730 06/19/17 0730 Medications Medications Current Medications Lorazepam (Ativan) 0.5 mg Q8H PRN PO ANXIETY Last administered on 06/20/17 12 :39; Admin Dose 0.5 MG; Start 06/19/17 at 00:00 Ondansetron HCl (Zofran Inj) 4 mg Q6H PRN IV NAUSEA AND/OR VOMITING; Start at 00:00 Aspirin (Aspirin) 81 mg DAILY PO Last administered on 06/21/17 08:54; Admin Dose 81 MG; Start 06/19/17 at 09:00 Acetaminophen (Tylenol Tab) 650 mg Q6H PRN PO PAIN LEVEL 1-3 OR FEVER Last administered on 06/19/17 12:04; Admin Dose 650 MG; Start 06/19/17 at 00:00 Famotidine (Pepcid) 20 mg Q12 PO Last administered on 06/21/17 08:55; Admin Dose 20 MG; Start 06/19/17 at 09:00 Enoxaparin Sodium (Lovenox) 40 mg DAILY SC Last administered on 06/21/17 09: 20; Admin Dose 40 MG; Start 06/19/17 at 09:00 Atorvastatin Calcium (Lipitor) 40 mg QHS PO Last administered on 06/20/17 20: 31; Admin Dose 40 MG; Start 06/19/17 at 21:00 Losartan Potassium (Cozaar) 50 mg DAILY PO Last administered on 06/21/17 08: 56; Admin Dose 50 MG; Start 06/20/17 at 10:30 Metoprolol Tartrate (Lopressor) 50 mg BID PO Last administered on 06/21/17 08 :56; Admin Dose 50 MG; Start 06/20/17 at 10:30 Nortriptyline HCl (Aventyl) 10 mg HS PRN PO ANXIETY; Start 06/20/17 at 10:30 Linagliptin (Tradjenta) 5 mg DAILY PO Last administered on 06/21/17 08:55; Admin Dose 5 MG; Start 06/20/17 at 10:30 Acetaminophen/ Hydrocodone Bitart ([place] (5/325)) 1 tab Q4H PRN PO pain Last administered on 06/20/17 20:32; Admin Dose 1 TAB; Start 06/20/17 at 10:30 CELESTE AYERS NP Jun 21, 2017 10:18
[2017-06-21 10:23] LABS: ADD UMIC NO; UR ASCORBIC ACID NEGATIVE (NEGATIVE); UR BILIRUBIN (Dip) NEGATIVE (NEGATIVE); UR BLOOD (Dip) NEGATIVE (NEGATIVE); UR CLARITY CLEAR (CLEAR); UR COLOR YELLOW (YELLOW); UR GLUCOSE (Dip) NEGATIVE (NEGATIVE); UR KETONES (Dip) NEGATIVE (NEGATIVE); UR LEUKOCYTE ESTERASE (Dip) NEGATIVE Leu/ul (NEGATIVE); UR NITRITE (Dip) NEGATIVE (NEGATIVE); UR TOTAL PROTEIN (Dip) NEGATIVE (NEGATIVE); UR UROBILINOGEN (Dip) NEGATIVE (NEGATIVE)
[2017-06-21 10:53] LABS: BARBITURATES Negative (NEGATIVE); BENZODIAZEPINES Negative (NEGATIVE); CANNABINOIDS Negative (NEGATIVE); COCAINE Negative (NEGATIVE)
[2017-06-21 10:55] LABS: OPIATES Positive (NEGATIVE)
[2017-06-21] MEDS: LORAZEPAM 0.5 MG TAB PO PRN (14:54)
[2017-06-21] MEDS ORDERED: KETOROLAC 15 MG INJ IV STA (17:39)
--- NOTE | 2017-06-21 18:32 | PSY ---
Date/Time of Note Date/Time of Note DATE: 06/21/17 TIME: 18:09 Psychiatric Subjective Eval Consent Pt consented to telemedicine: Yes Subjective Evaluation Patient location: inpatient Chief Complaint: ACUTE ONSET ALOC LAST WELL KNOWN TIME 1400 Reason for consult: Symptoms of aphasia and motor weakness realated to secondary gain History of present illness This is a 52 year old female who is living in a hotel who is living with her 18 year old and 15 year old daughters. She was admitted with the complaint of motor weakness as well as aphasia. A neurologic workup was performed and there was no physical finding or laboratory finding that would medically explain the symptoms. I was informed that the patinet was informed that she would be discharged and would potentially be homeless. Shortly after this the patient developed a recurrence of her presenting symptoms of motor weakness and aphasia. There were no neurologic findings which would be consistent with a TIA or stroke. A psychiatric consult was requested to assess if the patisid was experiencing a conversion disorder. The patient reports that she has been treated for depression, fibromyalgia and posttraumatic stress disorder. She states that she has a therapist as well as a psychiatrist. She has been unable to work since 2011. She denies hallucinations or delusions. The difference between conversion disorxder and malingering is the presence of conscious secondary gain, as what appears in this case. If the patient is not malingering and is has a conversion disorder, this condition also could be treated on an outpatient basis by her current therapist and psychiatrist. Impression, Malingering, Reports having depression , PTSD and fibromyalgia. Past psychiatric history Disabled since 2011. Medical history Problems Medical Problems: (1) TIA (transient ischemic attack) Status: Acute Allergies: Coded Allergies: No Known Allergy (Unverified , 06/18/17) Substance Abuse Substance use: No known substance abuse Social History Marital status: single Level of education: college degree DPA/Conservatorship: No Occupation/Mcfp: unemployed Psychiatric Objective Eval Review of Systems: Constitutional: Normal Eyes: Normal ENT: Normal Neck: Normal Respiratory: Normal Chest/Breast: Normal Cardiovascular: Normal GI: Normal Genitourinary: Normal Skin: Normal Lymphatic: Normal Musculoskeletal: Abnormal Neurological: Abnormal Other: reports having muscle weakness and problems with speech. Physical Examination: Sleep: Adequate Appetite: Adequate Energy: Adequate Mental Status Examination: Appearance: Groomed Eye Contact: Good Psychomotor Activity: Normal Behavior: Cooperative Speech: Clear AFFECT: Appropriate Mood: Appropriate/Full Though Process: Linear Thought Content: Normal Suicidal: No Homicidal: No On 72 hour hold: No Orientation: x4 Cognition: Alert Insight: Intact Judgement: Intact Attention Span: Intact Laboratory Results Laboratory Tests Test 06/21/17 06:00 Urine Color YELLOW Urine Clarity CLEAR Urine pH 5.0 Urine Specific Magnet 1.020 Urine Ketones NEGATIVEmg/dL Urine Nitrite NEGATIVEmg/dL Urine Bilirubin NEGATIVEmg/dL Urine Urobilinogen NEGATIVEmg/dL Urine Leukocyte Esterase NEGATIVELeu/ul Urine Hemoglobin NEGATIVEmg/dL Urine Glucose NEGATIVEmg/dL Urine Total Protein NEGATIVEmg/dl Urine Opiates Screen Positive Urine Barbiturates Negative Urine Amphetamines Screen Negative Urine Benzodiazepines Screen Negative Urine Cocaine Screen Negative Urine Cannabinoids Negative Assessment and Plan Assessment/Diagnosis [place] I: Malingering, Fibromyalgia, Depression, PTSD [place] II: deferred [place] III: morbid obesity, fibromyalgia. [place] IV: problems with finance and housing. [place] V: 60 Recommendation/Plan Medication Management The patient currently is under psychiatric care and I do not which to change medications or treatment. The therapist and psychiatrist should be informed that there is a suspicion that the patient may be malingering. Follow-up/Disposition Discharge to self and to the care of her therapist and psychiatrist. JAN HAYWARD MD Jun 21, 2017 18:27
[2017-06-21] MEDS: ATORVASTATIN 40 MG TAB PO SCH (20:23)
[2017-06-22] VITALS (8 sets, daily range): BP systolic 129–154; BP diastolic 67–72; PULSE 62–71; RESP 17–19
[2017-06-22] MEDS: KETOROLAC 15 MG INJ IV PRN ×2 (03:15→09:33)
[2017-06-22] MEDS: HYDROCODONE/APAP (5/325) TAB PO PRN ×2 (05:53→12:48)
[2017-06-22] MEDS: ASPIRIN 81 MG TAB PO SCH (09:31)
[2017-06-22] MEDS: LINAGLIPTIN 5 MG TABLET PO SCH (09:32)
[2017-06-22] MEDS: FAMOTIDINE 20 MG TAB PO SCH (09:32)
[2017-06-22] MEDS: METOPROLOL 50 MG TAB PO SCH (09:32)
[2017-06-22] MEDS: LOSARTAN 50 MG TAB PO SCH (09:32)
[2017-06-22] MEDS: ENOXAPARIN 40 MG/0.4 ML SYG SC SCH (09:46)
--- NOTE | 2017-06-22 10:20 | PDOCDIS ---
Discharge Instructions CONDITION Patient Condition: Stable HOME CARE INSTRUCTIONS: Diet Instructions: Reduced CalorieYour diet recommendation is: Carbohydrate controlled diet. FOLLOW UP/APPOINTMENTS Follow-up Plan 1.Follow up with primary care physician, outpatient psychiatrist and outpatient neurologist in 1 week If you don't have one please let someone know, we can give you resources that may help you pick one. You may also call your insurance company to assign one to you. Review your medication list with your nurse before leaving and if you need new prescriptions please let your nurse know. I may have made changes to your home medications or given you new prescriptions, please let your primary doctor know as well. Stay compliant with your medications and report any side effects to your PCP or pharmacist. Return to the ER if you have any concerns and cannot reach your doctors or call your insurance company, they usually have a nurse that can help you. 2. Call 911 or go to the nearest emergency room if experiencing loss of consciousness, dizziness, chest pain, shortness of breath, vomiting/abdominal pain, speech difficulties, motor weakness or any unusual symptoms. CELESTE AYERS NP Jun 22, 2017 10:20
--- NOTE | 2017-06-22 10:23 | DS ---
Date/Time of Note Date/Time of Note DATE: 06/22/17 TIME: 10:23 Discharge Summary Admission/Discharge Info Admit Date/Time Jun 18, 2017 at 23:20 Discharge Date/Time Discharge Diagnosis 1. Aphasia,most likely possible conversion disorder vs malingering. Patient had extensive neurology diagnostic workup and could not explain a medical reason for her symptoms. Recommend oupt psych follow-up 2. PTSD. 3. Anxiety disorders. 4. Prediabetes-controlled 5. Obesity. 6. GERD. 7. Hx of concussion/migraines 8. Homelessness. Patient Condition: Stable Consults ,neurology Telepsych eval Procedures 06/19/2017. MRI brain. Patent major intracranial arteries. 06/19/2017. Carotid ultrasound. No evidence of hemodynamically significant carotid stenosis. 06/19/2017. MRI brain without contrast. No acute intracranial hemorrhage, infarction or mass. 06/18/2017. Chest x-ray. Unremarkable chest x-ray. Hospital Course This is a 52-year-old -Citizen Of [place] female with a past medical history of PTSD, fibromyalgia, depression, prediabetes, obesity, GERD, history of migraines and concussion, was admitted for sudden onset of aphasia. Patient had a complete neurologic workup with no medical explanation of her symptoms. Her physical findings and lab findings also unremarkable for any acute medical etiologies of her presenting symptoms. During the course of hospitalization, patient was noted with on and off aphasic. She was able to tolerate diet and other activities. At this time, as per neurologist recommendation, most likely patient presenting symptoms are conversion disorder and no further neurology workup was indicated. At this time, we had a telemetry psychiatry evaluation done. As per evaluation by the telemetry psych MD, most likely patient is malingering. Patient did not have any hallucination or delusion. Recommendation was to have patient follow-up with her outpatient psychiatrist. At this time, patient is not having any further aphasia or weakness. She is conversing appropriately. However, patient is somewhat reluctant to be discharged home as she is also homeless. Our social science instructor had provided patient with shelters and other resources available for homelessness which she refused. She is medically stable for discharge. We have also requested a front wheeled walker to provide patient with upon discharge. Patient verbalized discharge instructions. Approximately 60 minutes was spent in coordinating the discharge on this patient. Patient was seen in collaboration with . Home Meds Reported Medications Sitagliptin* (Januvia*) 100 Mg Tablet, 100 MG PO DAILY, #30 TAB 06/20/17 Naproxen* (Naproxen EC*) 500 Mg Tablet.dr, 500 MG PO BID for BREAKTHROUGH PAIN, TAB 06/20/17 Atorvastatin Calcium* (Atorvastatin Calcium*) 20 Mg Tablet, 20 MG PO QHS, #30 TAB 06/20/17 Nortriptyline Hcl* (Nortriptyline Hcl*) 10 Mg Capsule, 10 MG PO HS Y for ANXIETY , CAP 06/20/17 Gabapentin* (Gabapentin*) 300 Mg Capsule, 300 MG PO BID, #60 CAP 06/20/17 Losartan Potassium* (Losartan Potassium*) 50 Mg Tablet, 50 MG PO DAILY, TAB 06/20/17 Metoprolol Tartrate* (Lopressor*) 50 Mg Tab, 50 MG PO BID, #60 TAB 06/20/17 Follow-up Plan 1.Follow up with primary care physician, outpatient psychiatrist and outpatient neurologist in 1 week If you don't have one please let someone know, we can give you resources that may help you pick one. You may also call your insurance company to assign one to you. Review your medication list with your nurse before leaving and if you need new prescriptions please let your nurse know. I may have made changes to your home medications or given you new prescriptions, please let your primary doctor know as well. Stay compliant with your medications and report any side effects to your PCP or pharmacist. Return to the ER if you have any concerns and cannot reach your doctors or call your insurance company, they usually have a nurse that can help you. 2. Call 911 or go to the nearest emergency room if experiencing loss of consciousness, dizziness, chest pain, shortness of breath, vomiting/abdominal pain, speech difficulties, motor weakness or any unusual symptoms. Primary Care Provider Care Physician No CELESTE Chatman NP Jun 22, 2017 10:23
--- NOTE | 2017-06-22 10:50 | QN ---
Documentation Comment Today I spoke with the patient. Patient seems very upset on discharging from the hospital. She also started to argue with me stating that she cannot understand the Yi that I speak. She kept asking that she was diagnosed with TIA by someone else in the hospital. I tried to explain her blood her symptoms mostly psychological as per telemetry psych and neurology evaluation and she needs to get a medical record from the hospital to take home with and to have it reviewed by her outpatient psychiatrist. I also explained her that all the workup has been negative for a stroke. At this point, patient started to raise her voice and I had to leave from the room. At this time, I would defer this situation to hospital administration staff and patient does not require any inpatient medical workup and she has to leave at this point. Case discussed with . CELESTE AYERS NP Jun 22, 2017 10:50
--- NOTE | 2017-06-22 13:15 | QN ---
Documentation Comment Reviewed patient prior to discharge and went over imaging findings, symptoms and recommendations in a lot of detail. Patient verbalized lots of concerns and I apologized and attempted to make her feel better as much as possible. At the end of the visit, she seemed happy with the conversation, and stated no hard feelings. I explained the lack of a treatable diagnosis and the need for close followup with outpatient PCP as well as low threshold to return to ER if symptoms recurr and she verbalized understanding. FIGUEROA OROSCO. Jun 22, 2017 13:15
== END 2017-06-22 17:00 | disposition home or self-care (01) | DRG 103 ==
LOC: E/R 18:04 → TEL 23:20
PROVIDERS: ADMIT Internal Medicine; ATTEND Internal Medicine
DX: G43.909 Migraine, unspecified, not intractable, without status migrainosus (principal); R47.01 Aphasia; Z68.43 Body mass index [BMI] 50.0-59.9, adult; F43.12 Post-traumatic stress disorder, chronic; X58.XXXD Exposure to other specified factors, subsequent encounter; E66.01 Morbid (severe) obesity due to excess calories; R73.03 Prediabetes; F32.9 Major depressive disorder, single episode, unspecified; F41.9 Anxiety disorder, unspecified; F43.10 Post-traumatic stress disorder, unspecified; K21.9 Gastro-esophageal reflux disease without esophagitis; Z59.0 Homelessness
CPT/HCPCS: 70450; 70544; 70551; 71010; 80048; 80053; 80061; 80307; 81003; 83036; 83735; 84443; 84484; 85025; 85610; 85730; 92507; 92610; 93005; 93306; 93880; 97116; 97162; 97167; 97530; 97535; J1650; J1885; J2060; J2270; J2405

== ENCOUNTER 2017-10-12 20:01 | Inpatient (IN) | END 2017-10-31 20:15 | disposition home or self-care (01) | DRG 69 ==